=== PATIENT | female | born 1965 | race African-American/Black ===

== ENCOUNTER → 2016-05-26 | Outpatient (CLI) | payer BC ==
[~2016-05-26] VITALS: Ht 162.6 cm; Wt 127.0 kg
[~2016-05-26] MED LIST: ASPRIMOX 325 M325 MG PO; B COMPLEX1 EACH PO; BIOTIN1 M1 PO; CENTRUM SILVER1 EAC4 PO; COD LIVER OIL1 EACH PO; FOLIC ACID1 MG PO; LISINOPRIL5 MG PO; METFORMIN 500500 MG PO; METHOTREXATE; MOBIC15 MG PO; MOBIC7.5 MG PO; POTASSIUM GLU2.5 MEQ PO; PREDNISONE 20 M20 M1 PO; TRAMADOL 50 MG50 MG PO; ULTRAM 50MG TAB50 MG PO; VITAMIN B-12500 MCG PO
--- NOTE | ~2016-05-26 | HPC ---
[facility] [place] [address] PAIN MANAGEMENT CONSULTATION Name: ANNIKA MCNEAL Room #: REG [facility]ITAL[facility]el.#: [id number] Admission: 05/26/16 Attend Phys: Timi Pereyra DO Discharge: Date of : 65 Report #: [id number] THIS REPORT FOR: //name// CC: Leslie Pereyra HISTORY: The patient is a 51-year-old female. She had prior been seen back in August of 2013, just shy of 2 years ago. She had a left SI joint injection in July, with overall improvement of the symptoms. Somewhat lost to followup. She returns to the pain clinic today complaining of pain, primarily low back, radiating to the front of the left leg. She states she missed a step and fell, twisting her back, 03/04. The pain has been problematic in low back and left leg since. She notes some burning and paresthesia, rates the pain as 7 on a 0-10 visual analog scale, exacerbated with sitting, walking and activity. PHYSICAL EXAMINATION: GENERAL: Shows a 51-year-old female, morbidly obese with a BMI of 48 kilograms per meter squared. VITAL SIGNS: Blood pressure 124/80, pulse 71 and respirations 16. MUSCULOSKELETAL: Rises from the chair using armrests, antalgic gait favoring the left leg. Positive straight leg raise on the left. Decreased left hip flexion strength. Decreased left lower extremity extension strength. Slight diminution in the left patellar reflex; right is 1-2/4. Achilles reflexes are difficult to elicit, but generally appear to be symmetric. SKIN AND INTEGUMENT: Intact. Lumbar flexion is good to 90 degrees. She has some tenderness in the right neck and shoulder. The patient notes subjective weakness and paresthesia in the left lateral leg, burning in her thigh. Denies saddle anesthesia or bowel or bladder continence changes. She notes subsequent to the fall at [employer] in February, pain in the back and right shoulder have been problematic. She has filled [id number] anti-inflammatory medications, Flexeril, chiropractic manipulation and hydrocodone. Medrol Dosepak afforded transient relief. DIAGNOSTIC STUDIES: MRI findings from 04/29/2016 do note a fairly significant stenosis at L2-L3, down to 5 mm, left greater than right and neural foraminal narrowing, L3-L4, notes down to about 7 mm. Physical exam as noted above. PAST SURGICAL HISTORY: The patient had gastric bypass surgery in 2009. She weighed 380 pounds at that time. She is now down to 280 pounds. She has had 3 C-sections in 1987, March of 1991 and January of 1992. [address] [address] PAIN MANAGEMENT CONSULTATION Name: ANNIKA MCNEAL SILVIA Room #: REG [facility] Juarez#: [id number] Admission: 05/26/16 Attend Phys: Timi Pereyra DO Discharge: Date of : 65 Report #: [id number] The patient continues to work despite pain. ASSESSMENT: Symptomatic lumbar radiculopathy, lumbar spondylosis, SI joint dysfunction and some right shoulder degenerative joint disease/myofascial-type pain secondary to trauma. RECOMMENDATIONS: 1. Epidural injection under fluoroscopy today. 2. Meloxicam 15 mg one a day. 3. Follow up in 3 weeks for reevaluation. Thank you for allowing me to participate in the patient's care. PROCEDURE NOTE PROCEDURE: Lumbar epidural injection under fluoroscopy. PROCEDURE NOTE: After both written and informed consent to include risk of spinal cord damage, increased pain, weakness and dural puncture, the patient was taken to the fluoroscopy suite, placed in the prone position. After sterile prep and drape, a skin wheal with lidocaine was raised. A 4.5-inch 22-gauge Tuohy needle was inserted. Attempt was made at L3-L4, unable to get good accessed. Aborted attempt at this level and elected to procede with injection at L4-L5. The 4.5-inch 20-gauge epidural Tuohy needle was then inserted in the midline at L4-L5, once engaged in the posterior spinous process, the stylette was removed and a saline filled glass syringe was connected. With continuous pressure on the plunger, the needle was advanced under intermittent biplanar flouroscopy into the epidural space, with good loss to resistance immediatley passed the Ligamentum Flavum. Negative aspiration for cerebrospinal fluid or blood was noted. Then 1 mL of Omnipaque under biplanar fluoroscopy showed good spread within the epidural space. This was followed with 80 mg of triamcinolone plus 1 mL of 1.5% preservative-free Xylocaine, 0.5 mL Xylocaine was then injected to flush the needle; it was removed. The patient was monitored for an appropriate period of time and discharged in good and stable condition. <ELECTRONICALLY SIGNED> By: Timi Pereyra DO 05/28/16 1209 [id number] Timi Pereyra DO /nt
[2016-05-26 08:59] VITALS: BP 124/80
== END | disposition home or self-care (01) ==
LOC: PAIN 07:10
DX: M54.16 Radiculopathy, lumbar region (principal); M47.896 Other spondylosis, lumbar region; M53.3 Sacrococcygeal disorders, not elsewhere classified; M19.011 Primary osteoarthritis, right shoulder; M79.1 Myalgia; E66.01 Morbid (severe) obesity due to excess calories

== ENCOUNTER → 2017-12-15 | Outpatient (CLI) | payer BC ==
[~2017-12-15] VITALS: Ht 162.6 cm; Wt 130.8 kg
--- NOTE | ~2017-12-15 | HPC ---
[facility] [address] [place] [address] PAIN MANAGEMENT CONSULTATION Name: ANNIKA MCNEAL Room #: REG GUZ[facility] RobPatelShereenPatel#: [id number] Admission: 12/15/17 Attend Phys: Triston Pereyra DO Discharge: Date of : 65 Report #: [id number] THIS REPORT FOR: //name// CC: DR SRIDEVI Moore DATE OF SERVICE: 12/15/2017 REFERRING PHYSICIAN: Dr. Morocho. CHIEF COMPLAINT: Low back pain, right lower extremity pain and paresthesias. HISTORY OF PRESENT ILLNESS: As you know, the patient is a very pleasant 52-year-old female who returns today in followup visit with recurrent low back pain, right lower extremity pain with paresthesias. The patient returns requesting epidural injection under fluoroscopic guidance. She reports no changes in her medical history since our last visit. She states she sustained no new injury, no new trauma. She indicates her pain is burning and numbness in sensation, places current pain score at 8/10. Sitting, walking certain activities and trying to exercise exacerbate symptoms; repositioning, medications, pillow under her legs and epidural injections have been beneficial to improve pain. She has returned today in followup visit requesting lumbar epidural injection to build on success of previous intervention. ALLERGIES: IV CONTRAST AGENT, HYDROCODONE, PENICILLIN, SULFA, AMPICILLIN. CURRENT MEDICATIONS: Multivitamins, biotin, vitamin B12, cyanocobalamin, potassium gluconate and folic acid. SOCIAL HISTORY: The patient denies tobacco, alcohol, IV or illicit drug use. She is accompanied by her , present in room today. IMAGING: No new imaging available. PHYSICAL EXAMINATION: VITAL SIGNS: Blood pressure 133/86, pulse 65, respiratory rate 16 and unlabored. The patient is 98% on room air. Height 5 feet 4 inches tall, weight 288.4 pounds, BMI calculated 49.5. GENERAL: Well-developed, well-nourished, well-hydrated, class 3, morbidly obese 52-year-old female, appearing stated age, placing current pain score at 8/10. HEENT: Normocephalic, atraumatic. Pupils equal, round, reactive to light. EXTREMITIES: Show no clubbing, no cyanosis, no edema. MUSCULOSKELETAL: Lower extremity strength appears symmetrical 5/5, intact to light touch from L1 through S2 dermatomes. Seated straight leg raising negative. Supine straight leg raising positive on the right. Edvin test [address] [address] PAIN MANAGEMENT CONSULTATION Name: ANNIKA CMNEAL Room #: REG [facility]ITALJuan[facility]ose#: [id number] Admission: 12/15/17 Attend Phys: Triston Pereyra DO Discharge: Date of : 65 Report #: [id number] negative. Modified Gaenslen positive for axial low back pain. Ankle clonus negative. Babinski is negative. ASSESSMENT: 1. Symptomatic lumbar radiculopathy. 2. Displacement of lumbar intervertebral disk with radiculopathy. 3. Lumbosacral spondylosis with radiculopathy. 4. Spinal stenosis of lumbar spine. 5. Neural foraminal stenosis of the lumbar spine. 6. Facet arthropathy of the lumbar spine. 7. Chronic intractable pain. PLAN: 1. The patient returns today in followup visit requesting to undergo next in the series of epidural injections under fluoroscopic guidance. The patient has done very well with previous epidural injections with good improvement. Last injection the patient underwent was 05/26/2016 with good and prolonged efficacy. She returns today requesting this epidural injection to build on success of previous intervention. The patient was advised risks and benefits of procedure, states understood and wished to proceed. 2. No medication changes made at today's visit. The patient to continue current medical therapy as previously prescribed. 3. We will see the patient back in followup visit on an as needed basis for possible epidural injection under fluoroscopic guidance. PROCEDURE NOTE DESCRIPTION OF PROCEDURE: L5-S1 right paramedian epidural steroid injection under fluoroscopic guidance. This is the first procedure of the first series that the patient is undergoing. After obtaining written consent, the patient was taken back to the fluoroscopy suite, placed in a prone position with pillow under the abdomen to decrease lumbar lordosis. The skin overlying the lumbosacral area was then prepped and draped in aseptic fashion. The L5-S1 vertebral interspace was then identified by AP fluoroscopy. The skin and subcutaneous tissue overlying the target site of injection was anesthetized with 3 mL 1% lidocaine. A 20-gauge 4-1/2 inch Tuohy needle was then advanced under fluoroscopic guidance towards the epidural space using a right paramedian approach. The epidural space was identified using loss of resistance to air technique. After negative aspiration for heme or cerebrospinal fluid, a total of 0.3 mL of Omnipaque was injected. A lumbar epidurogram was confirmed using both AP and lateral fluoroscopy. After negative aspiration for heme or cerebrospinal fluid, 5 mL of a solution containing 2 mL 40 mg per mL, 80 mg total triamcinolone, [address] [address] PAIN MANAGEMENT CONSULTATION Name: ANNIKA MCNEAL Room #: REG GUZMAN Juarez#: [id number] Admission: 12/15/17 Attend Phys: Triston Pereyra DO Discharge: Date of : 65 Report #: [id number] lidocaine 1% was injected in increments. Contrast spread was noted at postepidural space. The needle was then retracted approximately half way and needle tract flushed with 1 mL of 1% lidocaine. Needle was then removed. There were no apparent sensory or motor deficits in the lower extremity following the procedure. A sterile bandage was placed over the injection site. The heart rate, pulse, oximetry and blood pressure were continuously monitored after the procedure. There were no apparent complications. The patient tolerated the procedure well and was carefully escorted to the recovery room in stable condition. There were no apparent complications. After meeting discharge criteria, the patient was then discharged home. <ELECTRONICALLY SIGNED> By: Triston Pereyra DO 12/22/17 1259 [id number] Triston Pereyra DO /nt
[2017-12-15 09:32] VITALS: BP 133/86
== END | disposition home or self-care (01) ==
LOC: PAIN 07:14
DX: M51.16 Intervertebral disc disorders with radiculopathy, lumbar region (principal); M47.27 Other spondylosis with radiculopathy, lumbosacral region; M48.061 Spinal stenosis, lumbar region without neurogenic claudication; M46.96 Unspecified inflammatory spondylopathy, lumbar region; G89.29 Other chronic pain; Z91.041 Radiographic dye allergy status; Z88.0 Allergy status to penicillin; Z88.2 Allergy status to sulfonamides; Z88.8 Allergy status to other drugs, medicaments and biological substances